=== PATIENT | female | born 1955 | race Caucasian/White ===

== ENCOUNTER → 2019-09-14 08:25 | Outpatient (CLI) | payer OTHER, SELFPAY ==
--- NOTE | 2019-09-14 | BRBX_PTH ---
PATIENT: SALEEM BECERRIL LOC: [facility] U#:[id number] AGE/SX: 70/F ROOM: RE09/14/[address]: Dr. Natalee Owens MD : 1955 BED: DIS: SPEC #: [id number] RECD: 09/14/19 12:41 STATUS: GLENIS RE #: [id number] NEREIDA: 09/14/19 00:[address]: Natalee Owens DEPT: SURGICAL PATHOLOGY RECD BY: Erick Barry ENTERED: 09/14/19 12:41 SP TYPE: BREAST BX OTHR DR: Dr. Buck Wheeler MD Tissues: Right breast, NOS Procedures: Surgery Specimen Level IV HEADER OPERATION: Right stereotactic breast biopsy PRE-OP DIAGNOSIS: Right breast 12 o'clock microcalcifications TISSUE SUBMITTED: Right breast core tissue ISCHEMIC TIME: 1 minute FIXATION TIME: 10.5 hours MICROSCOPIC DIAGNOSIS Right breast, core biopsy: Microfibroadenoma with clustered microcalcifications. Mild fibrocystic change with associated microcalcifications. AM:leticia 09/15/19 COMMENT Reference is made to the patient's right breast needle core biopsy from 10/07/16 ([id number]) in which hyalinized fibroadenoma was identified. Case has been reviewed in consultation with Dr. Condon who concurs with the above diagnosis. MORRIS:MIRNA MICROSCOPIC DESCRIPTION Slides are reviewed. GROSS DESCRIPTION Received is one container labeled with the patient's name and not further designated. The specimen consists of multiple elongated fragments of estrada-yellow fibroadipose tissue that in aggregate measure 5 x 3 x 0.3 cm. The entire specimen is submitted in two cassettes. / MIRNA:leticia 09/14/19 TC:5 CPT: 95195
--- NOTE | 2019-09-14 08:55 | PCM.HP.BLA ---
History and Physical Date of Admission: 09/14/19 Claire Valverde 1955 ? ? REFERRING PHYSICIAN: Buck Wheeler MD ? CHIEF COMPLAINT: Consult (Consult breast) ? HPI: The patient is a 64 year old female presents with abnormal right breast mammograms. Denies palpable breast masses. Denies nipple discharge. Denies breast pain. Had previous left breast biopsy - 10/15/16 Left breast, stereotactic needle core biopsy: Focal fibroadenomatous change with associated microcalcifications. Mild nonproliferative fibrocystic change. No evidence of malignancy. No breast or ovarian cancer known in family. ? Mammograms 08/29/2019 There are a grouped pleomorphic calcifications in the right breast at 12 o'clock middle depth. There is an 8 mm irregular asymmetry in the left breast at 7 o'clock middle depth. ?This is not significantly changed. ?There is a biopsy clip associated with the asymmetry. No other significant masses or calcifications are seen in either breast. IMPRESSION: SUSPICIOUS FINDING - BIOPSY SHOULD BE CONSIDERED A six month follow up mammogram on the left is advised. The grouped pleomorphic calcifications in the right breast at 12 o'clock middle depth are suspicious of malignancy. ?A stereotactic biopsy is recommended. The 8 mm irregular asymmetry in the left breast at 7 o'clock middle depth resembles a post-surgical scar and is probably benign. ?A follow-up in 6 months is recommended. ? ? PAST MEDICAL HISTORY ? Asthma ? ? HTN (hypertension) ? ? Mild intermittent asthma, uncomplicated 06/24/2017 ? Neuropathy (HCC) ? ? Obesity ? ? PAST SURGICAL HISTORY ? BREAST BIOPSY W/STEREOTACTIC GUIDANCE Left 10/15/2016 ? benign ? COLONOSCOPY ? 2012 ? D&C, DIAG AND/OR THERAPEUTIC ? ? ? Dilation & curettage times three-post bleeding ? LIGATE FALLOPIAN TUBE ? ? ? Tubal ligation ? PAST SURGICAL HISTORY OF ? ? ? retreive baby tooth from lung ? REMOVAL OF TONSILS,<12 Y/O ? ? ? Tonsillectomy ? TOTAL KNEE REPLACEMENT ? 12/2011 ? Left knee ? ? Current Outpatient Medications ? Benazepril HCl 40 mg tablet Take 1 tablet by mouth once daily. ? chlorthalidone (HYGROTON) 25 mg tablet Take 0.5 tablets by mouth once daily. ? naproxen sodium (ALEVE) 220 mg tablet Take 220 mg by mouth once daily. ? levalbuterol tartrate HFA 45 mcg/actuation inhaler Inhale 1-2 Puffs as instructed every 4 hours as needed. ? Cetirizine (ZYRTEC) 10 mg cap Take 1 tablet by mouth once daily. ? ? ALLERGIES: Latex, Natural Rubber; Environmental [Other]; Latex; Percocet [Oxycodone-Acetaminophen] ? PERSONAL HISTORY: Tobacco Use ? Smoking status: Never Smoker ? Smokeless tobacco: Never Used Substance Use Topics ? Alcohol use: No ? Drug use: No ? FAMILY HISTORY: ? Heart Mother ? ? Diabetes Father ? ? Diabetes Brother ? ? Cancer Maternal Grandfather ? ? ? REVIEW OF SYSTEMS: General - denies fevers, denies anorexia, denies weight loss Cardiovascular - denies chest pain, denies history of [place] Pulmonary - denies shortness of breath, denies coughing up blood Gastrointestinal - denies abdominal pain, denies hematemesis, denies blood in stools Neurological - denies seizures, denies chronic numbness/weakness of extremities, denies chronic headaches Genitourinary - denies burning with urination, denies blood in urine Hematological - denies spontaneous/prolonged bleeding Skin - denies nonhealing skin wounds Musculoskeletal - Had bilateral knee replacements Endocrine - denies diabetes, no thyroid problems Psychological ? denies hallucinations Obstetrical: menarche onset at age 12, , first at age 22, breast feeding 4 weeks, BCP use 18 for 2 y, LMP 4 weeks ago lasting 3 days had none previously for 5 y ? PHYSICAL EXAMINATION: General: The patient is 64 year old female, well nourished, well hydrated in no acute distress. The patient is oriented to time, place, and person. VITALS: Ht: 5'7 Wt: 282# BP 138/76 HR 82 RR 16 Head ? Normocephalic. EOM intact with sclera clear and no icterus noted. Mouth with mucus membranes moist. Neck - supple with no jugular venous distention noted. Trachea is midline. No carotid bruits noted. No thyroid enlargement or thyroid nodules detected. No masses noted. Chest/breast ? no asymmetry of breasts noted, no suspicious skin lesions noted, no nipple discharge and both nipples everted, no breast masses noted Lungs ? clear to auscultation. Normal breath sounds. No rales/rhonchi/wheezing noted. No labored breathing noted, such as retractions. No cough heard. Heart ? normal S1 and S2 auscultated. No rubs/clicks/murmurs noted. Regular rate. Abdomen ? soft and benign. Normal bowel sounds No abdominal bruits noted. Difficult to determine if any masses or organomegaly due to body habitus. Extremities ? no calf tenderness noted. No pitting edema noted. Skin ? normal skin integrity. Lymph ? no cervical adenopathy detected, no supraclavicular adenopathy detected, no axillary adenopathy detected Neurological ? gait normal, no focal deficits noted Psych ? calm and appropriate RADIOLOGIC STUDIES: As Noted ?? IMPRESSION: abnormal right breast mammograms ? PLAN: I have discussed the above with the patient. I have reviewed the radiological studies with the patient and pointed out the abnormalities. I have offered right breast stereotactic biopsy. I have explained the procedure to the patient. I have counseled the patient as to the risks of the procedure, including but not limited to: infection, bleeding, injury to any blood vessels/nerves, scar tissue, wound infections, complications of anesthesia, etc. ? the patient understands. The patient wishes to proceed. I have answered all questions to the patient?s satisfaction and the patient has no further questions. . Diagnoses: (R92.8) Abnormal mammogram (primary encounter diagnosis) (N60.19) Fibrocystic breast changes, unspecified laterality (E66.01) Morbid obesity (HCC) Return to Clinic: The patient is instructed to follow-up with me after the procedure (televisit) ?
--- NOTE | 2019-09-14 09:42 | OP.PCM_ITS ---
Report of Operation Date of Procedure: 09/14/19 Pre-Operative Diagnosis: abnormal calcifications seen on right breast mammograms Post-Operative Diagnosis: same Surgery/Procedure Performed:: right breast stereotactic biopsy Description of Surgical Findings:: abnormal calcifications found in specimen - pathology pending Type of Anesthesia:: Local - 1% xylocaine Specimen's removed: right breast tissue Estimated Blood Loss (mL): minimal Fluids Replaced: none Description of Procedure: After informed consent was given, the patient was brought into the breast biopsy suite. Appropriate time out protocol was followed. She was then placed in the prone position on the stereotactic biopsy table. The patient?s right breast was then placed in the hole at the head of the table. A information systems operator compression mammogram was then obtained in the CC view. The suspicious radiological lesion was then identified. Stereo pictures of the lesion were then taken for XYZ coordinates. The Mammotome biopsy stylus was then positioned where it would be entering into the patient?s breast. The skin at this site was then cleansed with a surgical skin preparation. The skin and subcutaneous tissues at this site were then infiltrated with 1% xylocaine. A small skin incision was made with an 11 blade scalpel. The biopsy stylus was then positioned into the patient?s breast at the proper coordinates of depth. Using the Mammotome vacuum-assist device, several core samples of breast tissue were obtained. A specimen mammogram was the obt ained and revealed that the abnormal calcifications were within the specimen. A hemostatic marker clip was then placed into the biopsy cavity and a information systems operator film revealed that it was properly deployed. The patient was then placed in the supine position and pressure was applied to the breast until no active bleeding was noted. Steristrips were applied to reapproximate the skin. A unilateral mammogram in the CC and MLO view were then taken which revealed that the marker clip was in the same area as the previous suspicious lesion. The patient tolerated the procedure well and was discharged from the breast biopsy suite in good condition. - Complications none noted
== END ==
PROVIDERS: PCP Family Medicine; Referring Provider Surgery; Visit Provider Surgery
DX: D24.1 Benign neoplasm of right breast (principal); N60.11 Diffuse cystic mastopathy of right breast; I10 Essential (primary) hypertension; E66.01 Morbid (severe) obesity due to excess calories; J45.909 Unspecified asthma, uncomplicated; G62.9 Polyneuropathy, unspecified; Z79.899 Other long term (current) drug therapy
CPT/HCPCS: 19081; 88305; J7050; A4648